=== PATIENT | male | born 1945 | race Caucasian/White ===

== ENCOUNTER → 2018-03-08 09:07 | Outpatient (CLI) | payer MEDICARE ==
[2014-02-15 13:50] VITALS: BMI 35.4
--- NOTE | ~2018-03-08 | ST ---
PATIENT:MARGIE LUCERO MEDICAL RECORD: [id number] SEX: M LOCATION:[facility] ORDER #: ADMISSION DATE: 03/08/18 AGE OF PATIENT: 72 REFERRING PHYSICIAN: INTERPRETING PHYSICIAN: COLLEEN GONSALES MD DATE OF SERVICE: 03/08/2018 PROCEDURE: Nuclear stress test. INDICATION: Angina, coronary artery disease, hypertension, and hyperlipidemia. DESCRIPTION OF PROCEDURE: He was exercised on standard Lexiscan protocol with 32.0 mCi injected at peak stress, 11.0 mCi were done previously with rest images. FINDINGS: Gated SPECT reveals a preserved ejection fraction at 62%, however, there is decreased thickening and brightening throughout the inferior segments. SPECT IMAGING: Cardiolite was used as myocardial perfusion agent. There is a mixed perfusion defect inferiorly and apically. This is partially fixed partially reversible, includes basal, mid, apical inferior segments as well as the apex itself. The remaining segments with homogeneous uptake at rest and stress. OVERALL IMPRESSION: 1. This is an abnormal nuclear stress test with mixed perfusion defect inferiorly and apically. 2. Gated SPECT reveals a preserved ejection fraction greater than 60%. In this patient with ongoing symptomatology, the current scan does suggest the presence of hemodynamically significant coronary artery disease and a previous myocardial infarction. Would proceed with coronary angiography as followup study. TRANSINT:[id number] Voice Confirmation ID: [id number] DOCUMENT ID: [id number] COLLEEN GONSALES MD at 1704 CC: ALBA CUNNINGHAM MD [id number] DICTATION DATE: 03/09/18 1218 VENEER STACKER: 03/09/18 1332 DEP CLI 03/08/18 [id number] [place] [address]
[~2018-03-08 09:07] MED LIST: ALDACTONE25 MG PO; ASPIRIN325 MG PO; CO Q-10100 MG PO; COREG25 MG PO; COZAAR100 MG PO; FIBERCON625 MG PO; FISH OIL 1,0001 CA1 PO; FLOMAX0.4 MG PO; GLUCOPHAGE1000 MG PO; HCTZ25 MG PO; HYDRALAZINE HCL50 MG PO; NIFEDIPINE ER60 MG PO; NOVOLIN N100 U/ML SQ; OCUVITE TABLET1 TA1 PO; OSTEO BI-FLEX1 EAC1 PO; PLAVIX75 MG PO; PRAVACHOL40 MG PO; PRILOSEC20 MG PO; PROBIOTIC250 MG PO; SINGULAIR10 MG PO; SYMBICORT 16010.2 GM INH; ZYRTEC10 MG PO
== END | disposition home or self-care (01) ==
LOC: D.HCCARDIO 09:07
DX: I25.119 Atherosclerotic heart disease of native coronary artery with unspecified angina pectoris (principal)

== ENCOUNTER 2018-03-16 07:58 | Outpatient (CLI) | payer MEDICARE ==
[~2018-03-16] VITALS: Ht 170.2 cm; Wt 101.8 kg
--- NOTE | ~2018-03-16 | OP ---
PATIENT NAME: MARGIE LUCERO MEDICAL RECORD: [id number] :43 LOCATION:D.CAT ADMISSION DATE: SURGEON: COLLEEN GONSALES MD DATE OF OPERATION: 03/16/2018 DATE OF SERVICE: 03/16/2018 PROCEDURES: 1. PTCA stent vein graft to RCA. 2. PTCA stent [place] circumflex. 3. Intravascular ultrasound. 4. Left heart catheterization. 5. Selective coronary angiography. 6. Vein graft angiography. 7. OTT angiography. 8. Left ventriculogram. PROCEDURE IN DETAIL: After informed consent was obtained and after detailed description of risks, benefits as well as alternative therapies, the patient elected to proceed with angiogram and angioplasty. The right femoral area was prepped and draped in normal sterile fashion. The right femoral artery was cannulated via modified Seldinger technique with placement of 6-Korean sheath. All catheters exchanged through this sheath. FINDINGS: The left ventriculogram was performed in standard 30-degree CORRIGAN view, reveals good cardiac wall motion throughout all segments. Overall ejection fraction estimated 60%. SELECTIVE CORONARY ANGIOGRAPHY: 1. Left main is with no significant angiographic disease. 2. The left anterior descending is totally occluded. 3. The circumflex has previously placed stents. Intravascular ultrasound reveals there is greater than 80% stenosis proximal to the previously placed stents. The circumflex is non-grafted. 4. The right coronary is totally occluded. 5. Vein graft to the right coronary is patent; however, there are 2 areas of greater than 80% stenosis in the mid shaft. 7. OTT to the LAD is patent. The distal LAD is mildly diffusely diseased, but patent. PTCA STENT OF THE LEFT CIRCUMFLEX: The stent used was a 3.0 x 15 mm [place]. Result was 0% residual stenosis. PTCA STENT OF THE VEIN GRAFT OF THE RIGHT CORONARY: Stents used were 3.5 x 22 mm [place] x2. The result was 0% residual stenosis. OVERALL IMPRESSION: Successful percutaneous transluminal coronary angioplasty stent of the vein graft to the right coronary artery as well as the [place]oul[place] circumflex, both going from 80% initial stenosis to 0% residual. TRANSINT:[id number] Voice Confirmation ID: [id number] DOCUMENT ID: [id number] OPERATIVE REPORT [id number] LUCERO,GARRY COLLEEN BARAJAS MD at 8673 CC: [id number] DICTATION DATE: 03/16/18 1049 CD [employer]ORAGE [employer]S MAKE UP HELPER: 03/16/18 1146 DEP CLI 03/16/18 [facility] [address] [id number]
--- NOTE | ~2018-03-16 | HEMODYNAMI ---
PATIENT:MARGIE LUCERO MEDICAL RECORD: [id number] : 43 LOCATION:[facility] ADMISSION DATE: 03/16/18 Generatedon:03/16/201810:50 Patient name: MARGIE LUCERO Patient #: [id number] SSN: D OB: 1945 Date of study: 03/16/2018 Page: Of Hemodynamic Procedure Report Patient Data Patient Demographics Procedure consent was obtained First Name: MARGIE Gender: Male Last Name: NIC : 1945 [facility] Initial: ORIN Age: 72 year(s) Patient #: [id number] Race: Unknown Additional ID: [id number] Contact details Address: [address] [place] [address] State: [place] City: [facility] [place] Zip code: [address] Past Medical History Allergies: No known allergies Admission Admission Data Admission Date: 03/16/2018 Admission Time: 7:58 Procedure Procedure Types Cath Procedure Diagnostic Procedure LHC LHC w/Coronaries w/Grafts FFR/IVUS Intra-Coronary IVUS Initial Sedation Charges Moderate Sedation up to 15 minutes PCI Procedure Coronary Stent Coronary Stent Initial x2 Procedure Description Procedure Date Procedure Date: 03/16/2018 Procedure Start Time: 10:15 Procedure End Time: 10:48 Procedure Staff Name Function Martell Maher MD Performing Physician Emanuel Neville RN Nurse Lacey Echeverria RT Monitor Tiara Lopez RT Scrub Procedure Data Cath Procedure Fluoroscopy Diagnostic fluoroscopy Total fluoroscopy Time: 6.7 time: 6.7 min min Diagnostic fluoroscopy Total fluoroscopy dose: dose: 1378 mGy 1378 mGy Contrast Material Contrast Material Type Amount (ml) Isovue 300 139 Entry Location Entry Primary Successful Side Size Upsize Upsize Entry Closure Succes sful Closure Location (Fr) 1 (Fr) 2 (Fr) Remarks Device Remarks Femoral Right 5 Fr 6 Fr Exoseal artery Short Estimated blood loss: 10 ml Diagnostic catheters Device Type Used For End Catheter Placement MULTIPACK Pigtail 5 Fr Procedure catheter MULTIPACK JL 4.0 5Fr Procedure catheter MULTIPACK 3DRC 5Fr Procedure catheter DIAGNOSTIC AR2 MOD 5 Fr Procedure catheter ([id number]) Procedure Complications No complications Procedure Medications Medication Administration Route Dosage 0.9% NaCl I.V. 100 ml/hr Oxygen etCO2 Nasal cannula 2 l/min Heparin Flush Bag added to field 2 bags (1000units/500ml NS) Lidocaine 2% added to field 20 Versed I.V. 2 mg Fentanyl I.V. 100 mcg Heparin Bolus I.V. 4000 units Integrilin (Bolus I.V. 9 ml 2mg/ml) Integrilin (Bolus wasted 1 ml 2mg/ml) Plavix P.O. Hemodynamics Rest Heart Rate: 61 (bpm) Snapshots Pre Cath Intra NCS Post Cath Vital Signs Time Heart Resp SPO2 etCO2 NIBP (mmHg) Rhythm Pain Sedation Rate (ipm) (%) (mmHg) Status Level (bpm) 9:29:19 60 20 98 34.5 153/63(127) NSR 0 (11) 10(A) , No pain 9:33:41 58 12 96 31.5 137/60(107) NSR 0 (11) 10(A) , No pain 9:38:01 58 12 98 39 129/60(104) NSR 0 (11) 10(A) , No pain 9:42:17 60 12 98 39.8 131/63(95) NSR 0 (11) 10(A) , No pain 9:46:35 58 12 98 15.7 132/60(95) NSR 0 (11) 10(A) , No pain 9:50:55 58 12 98 38.3 121/58(98) NSR 0 (11) 10(A) , No pain 9:55:09 57 13 98 36 135/59(107) NSR 0 (11) 10(A) , No pain 9:59:29 56 14 98 36 131/60(106) NSR 0 (11) 10(A) , No pain 10:03:50 55 14 98 24.7 124/56(104) NSR 0 (11) 10(A) , No pain 10:08:01 56 12 93 40.5 119/55(97) NSR 0 (11) 9(A) , No pain 10:12:18 62 14 96 35.3 117/51(97) NSR 0 (11) 9(A) , No pain 10:16:31 58 12 98 35.3 126/59(92) NSR 0 (11) 9(A) , No pain 10:20:47 57 12 95 36 122/60(102) NSR 0 (11) 9(A) , No pain 10:25:03 58 12 94 37.5 120/56(100) NSR 0 (11) 9(A) , No pain 10:30:04 57 13 97 37.5 129/61(97) NSR 0 (11) 9(A) , No pain 10:35:05 58 13 97 35.3 127/56(99) NSR 0 (11) 9(A) , No pain 10:39:21 58 14 97 38.3 136/63(110) NSR 0 (11) 9(A) , No pain 10:43:42 58 17 97 34.5 147/60(111) NSR 0 (11) 10(A) , No pain 10:48:06 56 13 98 37.5 134/58(109) NSR 0 (11) 10(A) , No pain Medications Time Medication Route Dose Verified Delivered Reason Notes Effectiveness by by 9:29:46 0.9% NaCl I.V. 100 Emanuel Emanuel Per physician ml/hr Jamin Neville RN RN 9:29:56 Oxygen etCO2 2 Emanuel Emanuel Per physician Nasal l/min Jamin Neville cannula RN RN 9:30:21 Heparin Flush added 2 Emanuel Emanuel used for Bag to bags Jamin Neville procedure (1000units/500ml RN RN NS) 9:30:38 Lidocaine 2% added 20ml Emanuel Emanuel for local to vial Jamin Neville anesthetic RN RN 10:13:33 Versed I.V. 2 mg Emanuel Emanuel for sedation Jamin Neville RN RN 10:13:42 Fentanyl I.V. 100 Emanuel Emanuel for sedation mcg Jamin Neville RN RN 10:32:59 Heparin Bolus I.V. 4000 Emanuel Emanuel for units Jamin Neville anticoagulation RN RN 10:33:13 Integrilin I.V. 9 ml Emanuel Emanuel for (Bolus 2mg/ml) Jamin Neville antiplatelet RN RN therapy 10:33:22 Integrilin wasted 1 ml Emanuel Emanuel to sharp's (Bolus 2mg/ml) Lorigan Lorigan RN RN 10:46:30 Plavix P.O. Emanuel Castellanos for Jamin Neville antiplatelet RN RN therapy Procedure Log Time Note 9:18:39 Emanuel Neville RN sent for patient. Start room use. 9:18:40 Time tracking: Regular hours (M-F 7:00 - 5:00) 9:18:44 Plan of Care:Hemodynamics will remain stable., Cardiac rhythm will remain stable., Comfort level will be maintained., Respiratory function will remain adequate., Patient/ family verbilizes understanding of procedure., Procedure tolerated without complication., Recovers from procedure without complications.. 9:21:18 Patient received from Pre/Post Procedure Room to CCL 2 Alert and oriented. Tansferred to table in Supine position. 9:21:19 Warm blankets applied, and irene hugger turned on for patient comfort. 9:21:20 Correct patient and procedure confirmed by team. 9:21:21 Signed procedure consent form obtained from patient. 9:21:22 ECG and BP/O2 sat monitors applied to patient. 9:21:23 Full Disclosure recording started 9:28:03 Vital chart was started 9:28:09 Rhythm: sinus bradycardia 9:28:21 H&P Date Dictated: 02/14/2018 Within 30 days and on chart., H&P Addendum completed by physician on day of procedure. (MUST COMPLETE FOR ALL OUTPATIENTS). 9:28:22 Pre-procedure instructions explained to patient. 9:28:23 Pre-op teaching completed and patient verbalized understanding. 9:28:25 Family in patients room. 9:28:27 Patient NPO since Midnight. 9:28:38 Patient allergic to No known allergies 9:28:40 Is the patient allergic to Iodine/contrast media? No. 9:28:42 Is patient on blood thinner?No 9:28:44 Patient diabetic? Yes. 9:28:45 If diabetic: On Metformin? Yes 9:28:47 If on Metformin: Last Dose? 03/14/2018 9:28:57 Previous problem with sedation/anesthesia? No ? 9:28:59 Snore? Yes 9:28:59 Sleep apnea? Yes 9:29:01 Deviated septum? No 9:29:02 Opens mouth fully? Yes 9:29:03 Sticks out tongue? Yes 9:29:07 Airway obstruction? Yes COPD 9:29:12 Dentures? Yes In 9:29:15 Pre procedure: right dorsailis pedis pulse 2+ Normal; easily identifiable; not easily obliterated 9:29:18 Patient pain scale 0/10 ?. 9:29:24 IV patent on arrival in left forearm with 0.9% NaCl at [facility]. 9:29:26 Lab results completed and on chart. 9::31 Right groin area was prepped with chlora-prep and draped in sterile fashion 9::31 Alarms reviewed by R. N. 9::32 Sharps counted by scrub and verified by R.N. 9:29:46 0.9% NaCl 100 ml/hr I.V. was administered by Emanuel Neville RN; Per physician; 9:29:56 Oxygen 2 l/min etCO2 Nasal cannula was administered by Emanuel Neville RN; Per physician; 9:30:02 Use device set Femoral Dx 9:30:04 ACIST Syringe (85643) opened to sterile field. 9:30:05 Bag Decanter (2002S) opened to sterile field. 9:30:05 Medline Cath Pack ([id number]) opened to sterile field. 9:30:06 DIAGNOSTIC WIRE .035 260cm J wire (733312) opened to sterile field. 9:30:07 ACIST Hand Control (68198) opened to sterile field. 9:30:07 ACIST Manifold (87194) opened to sterile field. 9:30:08 DIAGNOSTIC Multipack 5Fr catheter set (IA7563) opened to sterile field. 9:30:09 Tegaderm 4 x 4 (1626W) opened to sterile field. 9:30:10 SHEATH 5FR Poteet (PSZ289) opened to sterile field. 9:30:21 Heparin Flush Bag (1000units/500ml NS) 2 bags added to field was administered by Emanuel Neville RN; used for procedure; 9:30:38 Lidocaine 2% 20ml vial added to field was administered by Emanuel Neville RN; for local anesthetic; 9:31:25 Baseline sample Acquired. 9:34:25 Elke Hall RT(R) was relieved by Lacey Echeverria RT(R) as monitoring person 10:11:00 Physician arrived 10:11:01 --------ALL STOP TIME OUT------ 10:11:01 Final Timeout: patient, procedure, and site verified with staff and physician. All members of the team are in agreement. 10:11:04 Right groin site verified by team. 10:11:07 Physical assessment completed. ASA score P 2 - A patient with mild systemic disease as per Martell Maher MD. 10:11:12 Sedation plan: IV Moderate Sedation Medication:Versed, Fentanyl 10:13:33 Versed 2 mg I.V. was administered by Emanuel Neville RN; for sedation; 10:13:42 Fentanyl 100 mcg I.V. was administered by Emanuel Neville RN; for sedation; 10:15:23 Procedure started. 10:15:34 Local anesthetic to right femoral artery with Lidocaine 2% by Martell Maher MD.INITIAL ACCESS ONLY 10:15:46 A 5 Fr sheath was inserted into the Right Femoral artery 10:16:08 A MULTIPACK Pigtail 5 Fr catheter was advanced over the wire and used for Procedure. 10:16:11 LV angiography performed. 10:16:27 EF : 60 % 10:16:28 Catheter removed. 10:16:40 A MULTIPACK JL 4.0 5Fr catheter was advanced over the wire and used for Procedure. 10:17:09 LCA angiography performed. 10:20:51 [place] Torres Martinez Eagleye IVUS Catheter (44106X) opened to sterile field. 10:20:51 INFLATOR Merit BasixCompak (MX0986) opened to sterile field. 10:20:52 SHEATH 6FR Poteet (BGB324) opened to sterile field. 10:20:53 CHOICE PT Extra Support 182cm wire ([id number]) opened to sterile field. 10:28:23 Sheath upsized to a 6 Fr Short. 10:28:58 A MULTIPACK 3DRC 5Fr catheter was advanced over the wire and used for Procedure. 10:29:22 RCA angiography performed. 10:29:24 OTT angiography performed. 10:29:29 OTT to LAD angiography performed. 10:29:31 Catheter removed. 10:30:28 A DIAGNOSTIC AR2 MOD 5 Fr catheter ([id number]) was advanced over the wire and used for Procedure. 10:30:37 SVG to RCA angiography performed. 10:30:41 Catheter removed. 10:31:28 GUIDE 6FR MB 1 catheter (LA6MB1) opened to sterile field. 10:31:39 Proceeding to intervention. 10:32:06 6 Fr MB1 guide catheter was inserted over the wire 10:32:59 Heparin Bolus 4000 units I.V. was administered by Emanuel Neville RN; for anticoagulation; 10:33:13 Integrilin (Bolus 2mg/ml) 9 ml I.V. was administered by Emanuel Neville RN; for antiplatelet therapy; 10:33:22 Integrilin (Bolus 2mg/ml) 1 ml wasted was administered by Emanuel Neville RN; to sharp's; 10:33:51 choice pt ex wire advanced. 10:36:06 Place stent Inflation Number: 1 A NICCI RX 3.5 x 22 stent ([id number]) was prepped and advanced across the Aorta Right -> Mid RCA. The stent was deployed at 17 MONISHA for 0:13 (min:sec). 10:39:07 Place stent Inflation Number: 2 A NICCI RX 3.5 x 22 stent ([id number]) was prepped and advanced across the Aorta Right -> Mid RCA. The stent was deployed at 21 MONISHA for 0:06 (min:sec). 10:39:19 Stent catheter was removed intact over wire. 10:39:21 Wire removed. 10:39:22 Guide catheter removed. 10:39:38 GUIDE 6FR XBLAD 4.0 catheter ([id number]) opened to sterile field. 10:39:48 IVUS catheter advanced over wire. 10:40:03 IVUS pass to Circ lesion performed. 10:41:54 IVUS catheter removed over wire. 10:42:59 Place stent Inflation Number: 1 A NICCI RX 3.0 x 15 stent ([id number]) was prepped and advanced across the Dist CX. The stent was deployed at 15 MONISHA for 0:15 (min:sec). 10:43:20 Stent catheter was removed intact over wire. 10:44:48 Wire removed. 10:44:50 Guide catheter removed. 10:45:02 Sheath removed intact; hemostasis achieved with Exoseal to the Right Femoral artery. 10:45:07 Procedure ended.(Physican Out) 10:45:35 Fluoroscopy time 06.70 minutes. 10:45:40 Flurop Dose total: 1378 10:45:40 Fluoroscopy dose: 1378 mGy 10:45:46 Contrast amount:Isovue 300 139ml. 10:45:52 Sharps counted by scrub and verified by R.N. 10:45:54 Insertion/operative site no bleeding no hematoma. 10:45:58 Post-op/insertion site Right Femoral artery dressed using a 4 x 4 and Tegaderm. 10:46:02 Post right femoral artery:stable 10:46:06 Post Procedure Pulses reassessed and unchanged 10:46:10 Post-procedure physical assessment completed. ASA score P 2 - A patient with mild systemic disease as per Martell Maher MD. 10:46:14 Post procedure rhythm: sinus rhythm 10:46:19 Estimated blood loss: 10 ml 10:46:24 Post procedure instruction explained to patient.Patient verbalizes understanding. 10:46:30 Plavix P.O. was administered by Emanuel Neville RN; for antiplatelet therapy; 10:46:58 Procedure type changed to Cath procedure, Diagnostic procedure, LHC, LHC w/Coronaries w/Grafts, FFR/IVUS, Intra-Coronary IVUS Initial, Sedation Charges, Moderate Sedation up to 15 minutes, PCI procedure, Coronary Stent, Coronary Stent Initial x2 10:47:00 Procedure and supply charges have been captured, reviewed, submitted and are correct. 10:47:50 Procedure Complication : No complications 10:47:53 Vital chart was stopped 10:47:58 See physician's report for complete and final results. 10:48:01 Report given to Pre/Post Procedure Room. 10:48:04 Patient transfered to Pre/Post Procedure Room with Stretcher. 10:48:06 Procedure ended. 10:48:06 Full Disclosure recording stopped 10:48:10 End room use (Document Last) 10:50:09 ACC-PCI Only Patient was given prescriptions, or instructed by Martell Maher MD to start/continue the following medications upon discharge: Plavix Intervention Summary Intervention Notes Time ActionType Lesion and Equipment Used Action# Pressure Duration Attributes 10:36:06 Place stent Aorta Right NICCI RX 3.5 x 1 17 00:13 -> Mid RCA 22 stent ([id number]) 10:39:07 Place stent Aorta Right NICCI RX 3.5 x 2 21 00:06 -> Mid RCA 22 stent ([id number]) 10:42:59 Place stent Dist CX NICCI RX 3.0 x 1 15 00:15 15 stent ([id number]) Device Usage Item Name Manufacture Quantity Catalog Number Hospital Part Current M inimal Lot# / Charge Number Stock Stock Serial# Code ACIST Syringe Acist 1 81427 858408 264936 290528 2 0 (62691) Medical Systems Inc Bag Decanter Microtek 1 847838 81878 051346 5 () Medical Inc. Medline Cath Medline 1 [id number] 713813 29430 745650 5 Pack ([id number]) DIAGNOSTIC St Iron 1 116656 390364 300501 228494 3 0 WIRE .035 260cm J wire (052312) ACIST Hand Acist 1 91381 814593 260017 080596 5 Control Medical (12733) Systems Inc ACIST Manifold Acist 1 45922 436368 128733 838656 5 (27590) Medical Systems Inc DIAGNOSTIC Cardinal 1 [id number] 813150 60687 565542 3 0 Multipack 5Fr Health catheter set (SL6251) Tegaderm 4 x 4 3M 1 1626W 556455 274299 597461 5 (1626W) SHEATH 5FR Terumo 1 LFJ162 995751 998428 297219 4 0 Poteet (HSI083) MULTIPACK Cardinal 1 690569 5 Pigtail 5 Fr Health catheter MULTIPACK JL Cardinal 1 688495 5 4.0 5Fr Health catheter [place] 1 50823T 187566 447144 180089 8 Torres Martinez Eagleye IVUS Catheter (28536C) INFLATOR Merit Merit 1 [id number] 913376 230576 828198 1 5 MRO Medical ([id number]) SHEATH 6FR Terumo 1 TNU109 528025 123197 966642 4 0 Poteet (UPH821) CHOICE PT [place] 1 [id number] 339900 946121 976860 5 Extra Support Scientific 182cm wire ([id number]) MULTIPACK 3DRC Cardinal 1 976373 5 5Fr catheter Health DIAGNOSTIC AR2 Cardinal 1 [id number] 600138 350272 439988 2 0 MOD 5 Fr Health catheter (408010T) GUIDE 6FR MB 1 Medtronic 1 LA6MB1 164744 99977 580164 1 catheter (LA6MB1) NICCI RX 3.5 x Medtronic 2 [id number] 182804 7446991 276155 5 [id number] 22 stent [id number] ([id number]) GUIDE 6FR Cardinal 1 [id number] 614774 698456 263734 3 XBLAD 4.0 Health catheter (23852685) NICCI RX 3.0 x Medtronic 1 [id number] 624392 4455280 699165 5 [id number] 15 stent ([id number]) Signature Audit [place] Stage Time Signature Unsigned Intra-Procedure 03/16/2018 Lacey Echeverria 10:50:26 AM RT(R) Signatures Monitor : Lacey Echeverria Signature : RT Date : Time : [id number] [place] [address]
[~2018-03-16 07:58] MED LIST changes: -ALDACTONE25 MG PO; -FLOMAX0.4 MG PO; -HYDRALAZINE HCL50 MG PO; -PROBIOTIC250 MG PO; -SINGULAIR10 MG PO
[2018-03-16] MEDS ORDERED: HYDRALAZINE HCL50 MG PO (08:24)
[2018-03-16] MEDS ORDERED: ALDACTONE25 MG PO (08:24)
[2018-03-16] MEDS ORDERED: SINGULAIR10 MG PO (08:25)
[2018-03-16] MEDS ORDERED: FLOMAX0.4 MG PO (08:26)
[2018-03-16] MEDS ORDERED: PROBIOTIC250 MG PO (08:29)
[2018-03-16 08:37] VITALS: BP 152/46; Ht 170.2 cm; Wt 101.8 kg
[2018-03-16 08:59] LABS: ANION GAP 14.8 mmol/L (8-16); CALCIUM 9.2 mg/dL (8.5-10.1); CARBON DIOXIDE 24.4 mmol/L (21.0-32.0); CREATININE - SERUM 1.1 mg/dL (0.6-1.3); POTASSIUM - SERUM 4.2 mmol/L (3.5-5.1)
[2018-03-16 09:33] LABS: BASOPHILS 0.1 % (0-2); EOSINOPHILS 2.5 % (0-7); HEMATOCRIT 36.4 % (42.0-54.0); HEMOGLOBIN 12.8 g/dL (13.5-17.5); LYMPHOCYTES 25.3 % (15-50); MCH 31.3 pg (26.0-34.0); MCHC 35.2 g/dL (31.0-37.0); MEAN PLATELET VOLUME 9.9 fL (7.4-10.4); MONOCYTES 7.7 % (2-11); NEUTROPHILS 63.4 % (40-80); PLATELET COUNT 136 10x3/uL (130-400); RBC 4.09 10x6/uL (4.20-6.10); RDW 14.4 % (11.5-14.5); WBC 7.3 10x3/uL (4.8-10.8)
[2018-03-16] MEDS ORDERED: PLAVIX75 MG PO (11:10)
== END 2018-03-16 14:40 ==
LOC: D.CATH 07:58
PROVIDERS: Internal Medicine Interventional Cardiology
DX: I25.119 Atherosclerotic heart disease of native coronary artery with unspecified angina pectoris (principal); I25.719 Atherosclerosis of autologous vein coronary artery bypass graft(s) with unspecified angina pectoris; I25.82 Chronic total occlusion of coronary artery; Z95.5 Presence of coronary angioplasty implant and graft; Z01.812 Encounter for preprocedural laboratory examination
CPT/HCPCS: 92978; 93459; C9604; C9600

== ENCOUNTER 2018-09-22 06:35 | Day surgery (SDC) | payer MEDICARE ==
[2018-09-20 09:29] LABS: HEMATOCRIT 36.4 % (42.0-54.0); HEMOGLOBIN 12.7 g/dL (13.5-17.5); MCH 30.7 pg (26.0-34.0); MCHC 34.9 g/dL (31.0-37.0); MCV 87.9 fL (80.0-100.0); RBC 4.14 10x6/uL (4.20-6.10); RDW 15.2 % (11.5-14.5); WBC 6.9 10x3/uL (4.8-10.8)
[2018-09-20 09:47] LABS: ANION GAP 14.9 mmol/L (8-16); CALCIUM 8.8 mg/dL (8.5-10.1); CARBON DIOXIDE 24.2 mmol/L (21.0-32.0); CREATININE - SERUM 1.2 mg/dL (0.6-1.3); POTASSIUM - SERUM 4.1 mmol/L (3.5-5.1)
[~2018-09-22 06:35] MED LIST changes: +ALDACTONE25 MG PO; +CITRACAL + D E1 EACH PO; +FLOMAX0.4 MG PO; +HYDRALAZINE HCL50 MG PO; +NOVOLIN 70/30 110 ML SC; +OMEPRAZOLE20 M1 PO; -PRILOSEC20 MG PO; +PROBIOTIC250 MG PO; +SINGULAIR10 MG PO
[2018-09-22 08:47] VITALS: BP 138/60; BMI 33.6
--- NOTE | 2018-09-22 11:14 | NUR ---
1035 PATIENT NOTED TO HAVING SMALL RED AREA UNDER RIGHT EYE, PATIENT STATED "I FELL GOING TO GET THE MAIL", MITCH.
--- NOTE | 2018-09-22 11:15 | NUR ---
REC'D FROM SURGERY. FAMILY AT BEDSIDE.FL TRAY AND DIET COLA BROUGHT TO PATIENT.
--- NOTE | 2018-09-22 11:45 | NUR ---
TOLERATED DIET. AMBULATED TO BATHROOM. VOIDED WITHOUT DIFFICULTY. IV DC'D WITH CATHETER INTACT.
--- NOTE | 2018-09-22 11:55 | NUR ---
WRITTEN AND VERBAL DC INST. GIVEN TO PT ALONG WITH RX. VERBALIZED UNDEERSTANDING.
--- NOTE | 2018-09-22 12:05 | NUR ---
DC'D HOME WITH FAMILY VIA PRIVATE VEHICLE. STABLE AT TIME OF DC.
--- NOTE | 2018-09-22 15:34 | OP ---
PATIENT NAME: MARGIE LUCERO MEDICAL RECORD: [id number] :41 [facility] DATE: SURGEON: ISRRAEL BROOKS MD DATE OF OPERATION: 09/22/2018 SURGEON: Isrrael Brooks MD DIAGNOSES: Urinary retention, obstructive prostate, recurrent urinary tract infections, bladder stones, elevated PSA of 6.9. PROCEDURE: Cystoscopy, transrectal ultrasound and prostate biopsy. FINDINGS: Obstructive lateral lobes and a large median lobe of the prostate. The bladder is filled with large stones. Transrectal ultrasound shows a 70-gram prostate. SPECIMENS: Prostate biopsy cores. BLOOD LOSS: None. 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 He has urinary retention in the past and last year, he had a urinary tract infection with Staphylococcus epidermidis, which was treated with Bactrim. He still remains on antibiotics. His PSA was high at 6.9. He has quite significant voiding symptoms including urinary frequency 6 times a day and nocturia times zero to one. He was on Plavix after having 3 coronary artery stents placed by Dr. Maher in February of 2018. We had to wait until the Plavix could finally be discontinued in order to biopsy his prostate. The Plavix was discontinued at the end of August 2018. He comes today to have cystoscopy and a prostate biopsy. He is not allergic to any antibiotics. He was given Ancef consumer banker to the OR. DESCRIPTION OF PROCEDURE: The patient was given IV sedation. He was then placed into the lithotomy position and prepped and draped. Cystoscopy was performed using a 21-Georgian cystoscope with 30-degree lens. The penile urethra shows no strictures or obstruction. There is trilobar hyperplasia of the prostate. The lateral lobes meet in the midline. There is a very large median lobe, which is more fused to the right side and there was a sulcus on the left side. Going into the bladder, the bladder was filled with very large stones in the bladder, which resemble reptile eggs. The bladder was then emptied through the cystoscope sheath and the scope was removed. We then placed a transrectal ultrasound probe in. Prostate size measurements were obtained and a size of 70 grams was calculated. Sextant biopsies were obtained with at least 3 cores from each sextant. Once all the specimens were obtained, the procedure was terminated. The patient will require an open bladder stone removal. Depending on whether his biopsy shows a benign prostate or cancerous prostate, we will have to proceed to treat the prostate. If the prostate biopsy is benign, then he may require transurethral resection of the prostate due to the large median lobe size. TRANSINT:[id number] Voice Confirmation ID: [id number] DOCUMENT ID: [id number] OPERATIVE REPORT [id number] MARGIE LUCERO, ISRRAEL Galvez MD at 1534 CC: [id number] DICTATION DATE: 09/22/18 1112 BENCH WORKER BINDING: 09/22/[address] [facility] 09/22/18 [id number] [place] [address]
== END 2018-09-22 12:05 | disposition home or self-care (01) ==
LOC: D.OPS 06:35 → D.PAN 08:30 → D.OPS 08:30
PROVIDERS: Anesthesiology; ATTEND Urology
DX: C61 Malignant neoplasm of prostate (principal); N40.1 Benign prostatic hyperplasia with lower urinary tract symptoms; R33.8 Other retention of urine; N13.8 Other obstructive and reflux uropathy; N21.0 Calculus in bladder; Z01.812 Encounter for preprocedural laboratory examination

== ENCOUNTER → 2018-10-28 10:08 | Outpatient (CLI) | payer MEDICARE ==
--- NOTE | ~2018-10-28 | ST ---
PATIENT:MARGIE LUCERO MEDICAL RECORD: [id number] SEX: M LOCATION:[facility] ORDER #: ADMISSION DATE: 10/28/18 AGE OF PATIENT: 72 REFERRING PHYSICIAN: INTERPRETING PHYSICIAN: COLLEEN GONSALES MD DATE OF SERVICE: 10/28/2018 Nuclear Stress Test INDICATIONS: Angina and coronary artery disease, shortness of breath, hypertension, and hyperlipidemia. PROCEDURE IN DETAIL: He was exercised on standard Lexiscan protocol with 30 mCi of sestamibi injected at peak stress and 10 mCi used previously for rest images. FINDINGS: Gated SPECT reveals a preserved ejection fraction at 75%. There is decreased thickening and brightening throughout the inferior segments. SPECT Imaging: Cardiolite was used as myocardial perfusion agent. There is a fixed perfusion defect inferiorly and apically. This includes the basal, mid apical, and inferior segments as well as the apex itself. There is no evidence of reversibility, in fact there is improvement with stress showing reverse redistribution. The remaining segments are with homogeneous uptake at rest and stress. OVERALL IMPRESSION: This is a normal nuclear stress test. This is a mildly abnormal nuclear stress test only showing a fixed perfusion defect inferoapically. This defect is not reversible, in fact it improves with stress and the remaining segments are with homogeneous uptake at rest and stress. Hence, this is a stable nuclear stress test. Continue medical management of the coronary artery disease and cardiac risk factors. TRANSINT:[id number] Voice Confirmation ID: [id number] DOCUMENT ID: [id number] COLLEEN GONSALES MD CC: [id number] DICTATION DATE: 10/31/18 1032 EMISSIONS TESTING AND REPAIR TECHNICIAN: 10/31/18 2312 DEP CLI 10/28/18 [place] [id number] [place] [id number]
[~2018-10-28 10:08] MED LIST changes: -OMEPRAZOLE20 M1 PO; +PRILOSEC20 MG PO
== END | disposition home or self-care (01) ==
LOC: D.HCCARDIO 10:08
PROVIDERS: ATTEND Internal Medicine Interventional Cardiology
DX: I25.10 Atherosclerotic heart disease of native coronary artery without angina pectoris (principal)

== ENCOUNTER 2018-11-03 10:43 | Inpatient (IN) | payer MEDICARE ==
[~2018-11-03] VITALS: Ht 170.2 cm; Wt 100.2 kg
[~2018-11-03 10:43] MED LIST changes: +OMEPRAZOLE20 M1 PO; -PRILOSEC20 MG PO
[2018-11-07 12:02] LABS: BASOPHILS 0.2 % (0-2); EOSINOPHILS 4.7 % (0-7); HEMATOCRIT 33.4 % (42.0-54.0); HEMOGLOBIN 11.6 g/dL (13.5-17.5); IMMATURE GRANULOCYTES 0.8 % (0-5); LYMPHOCYTES 16.9 % (15-50); MCH 31.2 pg (26.0-34.0); MCHC 34.7 g/dL (31.0-37.0); MCV 89.8 fL (80.0-100.0); MEAN PLATELET VOLUME 9.1 fL (7.4-10.4); NEUTROPHILS 69.4 % (40-80); PLATELET COUNT 108 10x3/uL (130-400); RBC 3.72 10x6/uL (4.20-6.10); RDW 15.1 % (11.5-14.5); WBC 6.6 10x3/uL (4.8-10.8)
[2018-11-07 12:09] LABS: ANION GAP 15.3 mmol/L (8-16); CALCIUM 8.9 mg/dL (8.5-10.1); CREATININE - SERUM 1.2 mg/dL (0.6-1.3); POTASSIUM - SERUM 4.3 mmol/L (3.5-5.1)
[2018-11-07 12:19] LABS: INR 1.02 (0.85-1.17); PROTIME 12.9 SECONDS (11.6-15.0)
[2018-11-07 12:20] LABS: APTT 33.4 SECONDS (22.8-39.4)
[2018-11-07] MEDS ORDERED: MELATONIN 3 MG1 TAB PO (12:21)
[2018-11-08 12:38] VITALS: BP 144/34; BMI 34.7
[2018-11-08 18:21] VITALS: BP 139/71
--- NOTE | 2018-11-08 20:00 | NUR ---
ASSESSMENT PER ADMIT PACKET. ABD. INCISION FROM NAVEL TO PELVIC AREA DRSG INTACT WITH SMALL AMOUNT OF BLEEDING. RT LOWER ABDOMEN WITH CATRACHITA DRAIN IN PLACED AND COMPRESSED. BLOODY DRAINAGE NOTED. IV PATENT LEFT HAND SALINE LOCKED. O2 ON 3L/M PER NC. NO DISTRESS. HOB UP 30 DEGREES.
[2018-11-08 20:19] VITALS: BP 117/60
--- NOTE | 2018-11-08 21:45 | NUR ---
MEDS GIVEN PER JUN RCCU=139. NPH 45 UNITS GIVEN PER JUN. HS SNACK GIVEN TO PATIENT REQUESTED JELLO. A SNACK. WILL CONTINUE TO OBSERVE. DENIES PAIN AT THIS TIME.
--- NOTE | 2018-11-08 21:46 | OP ---
PATIENT NAME: MARGIE LUCERO MEDICAL RECORD: [id number] :41 LOCATION:[facility] ADMISSION DATE:11/08/18 SURGEON: ISRRAEL BROOKS MD DATE OF OPERATION: 11/08/2018 CO-SURGEONS: Isrrael Brooks MD and Isrrael Parra MD DIAGNOSES: Prostate cancer, urinary retention, and bladder stones. PROCEDURE: UroLift times 8 units deployed and 7 held, this was by Dr. Brooks and as co-surgeons by Dr. Brooks and Dr. Isrrael Parra open bladder stone removal (cystolitholapaxy). FINDINGS: On cystoscopy, bladder filled with large stones. Bilateral lateral lobe obstruction with a prominent median lobe. Inguinal hernia repair mesh in the left lower quadrant. ESTIMATED BLOOD LOSS: Minimal. CLINICAL HISTORY: This is a 72-year-old male who was found to have an elevated PSA. He is in urinary retention and he has an indwelling Max catheter. He underwent a prostate biopsy and at the same time, he had a cystoscopy. The prostate biopsy showed prostate cancer, but of low-grade cancer for which he is being observed. The cystoscopy showed an obstructive prostate with a fairly large median lobe and large numbers of bladder stones. He comes today to have the UroLift procedure done and to have the bladder stones removed by open surgery. DESCRIPTION OF PROCEDURE: The patient was given induction of general anesthesia in supine position. He was then placed into stirrups. We prepped and draped the abdomen as well as the perineum and genitals. The UroLift scope was introduced. Findings are as outlined above. The first 2 units that were placed were at the level of the bladder neck. This was 1.5 cm distal to the bladder neck down to the lateral sulcus. One unit was placed on each side. Then, at the verumontanum level another 2 units were placed, one on each side. This was out at the anterolateral sulcus level. Upon visualizing the prostatic urethra, it was evident that the mid urethra was still obstructive. Then, at the mid urethral level at the midpoint of the distance between the anterior and posterior prostatic urethral surface we placed 1 unit UroLift unit on each side. This gave 6 units to open up the anterior urethral channel. The median lobe was still an issue. I attempted to fix it from the right side to pin it to the left lateral lobe. The first attempt to do this resulted in a misfire of implanting device. This had to be discarded. A second attempt was successful. Thus, he has [address] and 8 of them had been fired. We then inserted a Max catheter to bag drainage. An 8 cm infraumbilical midline incision was marked out using a marking pen extending cranially from the symphysis pubis. The #10 blade was used to cut down through the skin incision and to go down to the rectus fascia in the midline we used the Bovie. I placed stay sutures of 2-0 silk where I assumed the anterior bladder wall would be. When I opened up the most cranial part of it, it was evident that I was in the peritoneal cavity and at the level of the dome of the bladder. Also, while I was manual dissecting the space of Retzius, I identified the inguinal hernia repair mesh. This was adherent to the bladder. It is also adherent to the external iliac artery and vein. At this point, I called Dr. Parra in order to determine what to do about the inguinal hernia mesh. Dr. Parra determined OPERATIVE REPORT [id number] MARGIE LUCERO that since it had been there for a number of years, there was no harm in possibly exposing it to infected urine. The mesh has a tail, which extends into the perivesical fat. We dissected this tail out so that the bladder will be fully mobile. We put 2 more stay sutures more distally so that we would be opening up the anterior wall of the bladder. A cystotomy was made about 2 cm in length along the anterior wall of the bladder in the midline. We could immediately identify large numbers of stones. Initially, we used ring forceps to pull out the larger stones and finally we resorted to just scooping them out with our fingers. The Max catheter was in the way, so the Max catheter was removed. Finally, we had removed all of the stone material. The bladder was irrigated out and no further stone debris was seen. Some stone debris that had entered the space of Retzius was carefully picked away with forceps and removed. At this point, we closed the cystotomy. This was a 2-layer closure with 2-0 Vicryl. The first layer took the entire bladder wall and mucosa. This was with a running suture. The second layer was a reinforcement layer, which is seromuscular and this was also running with 2-0 Vicryl. We then made sure that a new 2-way 20-Maori Max catheter was placed into the bladder and we could palpate the Max catheter and the balloon in the bladder. This was put to bag drainage. A #10 flat Harmeet-Russ drain was put to exit through the right lower quadrant of the abdomen. The drain stitch was a 2-0 nylon. The rectus fascia was reapproximated using looped 0 PDS. [place] were used to close the skin and dressings were applied. The patient will be admitted to the hospital for pain control postoperatively. TRANSINT:[id number] Voice Confirmation ID: [id number] DOCUMENT ID: [id number] ISRRAEL BROOKS MD at 2146 CC: [id number] DICTATION DATE: 11/08/181717 TERMITE TECHNICIAN: 11/08/182144 ADM IN [facility] [address] [place] [address]
[2018-11-08 22:19] VITALS: BP 128/64; BMI 34.7
--- NOTE | 2018-11-08 23:00 | NUR ---
PT'S CPAP SET UP AND IN PLACE. RESTING QUIETLY DENIES NEEDS.
[2018-11-09 00:58] VITALS: BP 124/58
--- NOTE | 2018-11-09 03:00 | NUR ---
EYES CLOSED RESPIRATIONS WITH EASE AND UNLABORED. DENIES PAIN OR DISCOMFORT.
--- NOTE | 2018-11-09 04:29 | NUR ---
NO CHANGES IN ASSESSMENT.
[2018-11-09 04:54] VITALS: BP 137/50
[2018-11-09 08:58] VITALS: BP 141/60
--- NOTE | 2018-11-09 11:04 | NUR ---
scd's on and actively working
[2018-11-09 12:49] VITALS: BP 136/60
[2018-11-09 13:38] VITALS: Ht 170.2 cm; Wt 100.2 kg
[2018-11-09 15:58] VITALS: BP 143/65
--- NOTE | 2018-11-09 20:00 | NUR ---
ASSESSMENT PER FLOWSHEET. IV SALINE LOCKED TO LEFT HAND PT WEARING CPAP. SR UP X2 CALL LIGHT WITHIN REACH. ABDOMINAL INCISION C/D/I WITH CATRACHITA DRAIN RT LOWER QUAD IN PLACE AND COMPRESSED.
[2018-11-09 20:49] VITALS: BP 135/46
--- NOTE | 2018-11-09 21:45 | NUR ---
MEDS GIVEN PER JUN. FMYB=179. HELD NPH INSULIN.
--- NOTE | 2018-11-09 22:10 | NUR ---
REQUESTING PAIN MED FOR INCISIONAL PAIN RAES PAIN #4. NORCO 7.5MG TAB ONE PO GIVEN FOR PAIN CONTROL.
[2018-11-10 00:39] VITALS: BP 147/52
--- NOTE | 2018-11-10 00:54 | NUR ---
EYES CLOSED RESPIRATIONS WITH EASE AND UNLABORED.
[2018-11-10 04:54] VITALS: BP 138/49
--- NOTE | 2018-11-10 07:15 | NUR ---
REC'D IN BED AWAKE AND ALERT. RESP EVEN AND UNLABORED WITH NO DISTRESS NOTED. CAN EXPRESS NEEDS AND WANTS. NO C/O NOTED OR VOICED. ASSESSMENT COMPLETED. C/L IN REACH AT BEDSIDE.
[2018-11-10 08:22] VITALS: BP 154/55
[2018-11-10] MEDS ORDERED: HYDROCODON-ACE1 EAC7 PO (11:21)
[2018-11-10] MEDS ORDERED: OXYBUTYNIN CHLOR5 MG PO (11:22)
--- NOTE | 2018-11-10 12:00 | NUR ---
DC HOME WITH INSTRUCTION GIVEN ON HOW TO EMPTY CATRACHITA DRAIN AND MOSLEY. PT AND PT VOICE UNDERSTANDING. IV DC AT THIS TIME. C/L IN REACH BEDSIDE.
--- NOTE | 2018-11-10 13:09 | MORECARE ---
CASE MANAGEMENT DISCHARGE SUMMARY PATIENT: MARGIE ROA UNIT: [id number] ADM DATE: 11/08/18 AGE: 72 : 43 SEX: M ROOM/BED: D.2224 AUTHOR: ANYDOC PHYSICIAN: REFERRING PHYSICIAN: PRITESH BROOKS MD DATE OF SERVICE: 11/10/18 Discharge Plan Patient Name: MARGIE ROA Facility: [facility]:[place] : 1945 Planned Disposition: Home Anticipated Discharge Date: 11/10/18 Discharge Date: Expected LOS: 2 Initial Reviewer: [email or web address] Initial Review Date: 11/10/2018 Generated: 11/10/18 2:09 pm Comments DCP- Discharge Planning Updated by [email or web address]: Marquita Ribeiro on 11/10/18 12:[address] Patient Name: MARGIE ROA Admission Status: Elective Accout number: [id number] Admission Date: 11-08-2018 : 1945 Admission Diagnosis: Attending: ELIE BROOKS Current LOS: 2 Anticipated DC Date: 11-10-2018 Planned Disposition: Home Primary Insurance: MEDICARE A & B Discharge Planning Comments: Received discharge orders. I met with he and his to discuss needs. I discussed availability of home health and DME and they decline needs. States he will be going home with his and feels this is a safe discharge. states she has been instructed on walter catheter care and CATRACHITA drain care and feels competent that she can take care of them. Home today with . No needs identified. It Specialist: Marquita Ribeiro DCPIA - Discharge Planning Initial Assessment Updated by [email or web address]: Marquita Ribeiro on 11/10/18 1:03 pm * Is the patient Alert and Oriented? Yes * How many steps to enter\exit or inside your home? 2/0 * PCP Dr. Benson * [facility] [address] * Preadmission Environment Home with Family * ADLs Independent * Equipment CPAP * List name and contact numbers for known caregivers / representatives who currently or will assist patient after discharge: Estefany Roa - - [phone] * Verbal permission to speak to the caregivers and representatives has been obtained from the patient. Yes * Community resources currently utilized None * Please name any agencies selected above. [facility] * Additional services required to return to the preadmission environment? No * Can the patient safely return to the preadmission environment? Yes * Has this patient been hospitalized within the prior 30 days at any hospital? No Patient Name: MARGIE ROA Page 69131 at 1309 All edits/amendments must be made on the electronic document DICTATION DATE: 11/10/18 130 FARM TRACTOR OPERATOR: BLAYNE 11/10/18 1309 RPT#: [id number] DC DATE: STATUS: ADM IN [facility] [address] [place] [address] END OF REPORT
--- NOTE | 2018-11-10 13:27 | NUR ---
I have reviewed this patient and I concur with the Shift Assessment completed by the Licensed Practical Nurse today this shift.
--- NOTE | 2018-11-11 12:25 | OP ---
PATIENT NAME: MARGIE LUCERO MEDICAL RECORD: [id number] :41 LOCATION:[facility] ADMISSION DATE:11/08/18 SURGEON: PRITESH FLORES MD DATE OF OPERATION: 11/08/2018 PREOPERATIVE DIAGNOSIS: Bladder stones. POSTOPERATIVE DIAGNOSIS: Bladder stones. PROCEDURE: Cystotomy with removal of bladder stones. This is a cosurgeon case. The urologist was Dr. Brooks and general surgeon was Dr. Flores. I was called into the operating room by Dr. Brooks. He was getting ready to extract some bladder stones. He had performed an 8 cm lower midline incision and had entered the peritoneal cavity. He had not yet entered the bladder. There was some mesh in the left inguinal area. I was a little tenuous about removing the mesh and even doing some dissection around the mesh as I was pretty certain that it was in either near or stuck to the external iliac vessels and certainly we did not want to cause an iatrogenic injury to those structures. I was able to dissect it preperitoneally around this ball of mesh and dissect away surrounding connective tissue as well as the bladder without performing a cystotomy. We reperitonealized with a running 3-0 Vicryls. I then placed a stay suture, brought it down on the bladder and performed a cystotomy. He and I both extracted many, many stones. There were probably about 100 stones. We irrigated in the preperitoneal space. We removed all the stone debris that we could identify. I assisted him with the bladder repair. We irrigated again in the preperitoneal space. At no time was there any apparent injury to an intraperitoneal structure. He and I then placed a flat closed suction drain in each system that came out on the right. I assisted him with the low midline fascial closure and then the cutaneous closure with metallic clips. A sterile dressing was applied. TRANSINT:[id number] Voice Confirmation ID: [id number] DOCUMENT ID: [id number] PRITESH FLORES MD at 1225 CC: PRITESH BROOKS MD [id number] DICTATION DATE: 11/08/18 1743 ANIMAL CAREGIVER: 11/08/184 DIS IN 11/10/18 [place] [id number] [place] [address]
--- NOTE | 2018-11-11 16:35 | MORECARE ---
CASE MANAGEMENT DISCHARGE SUMMARY PATIENT: MARGIE ROA UNIT: [id number] ADM DATE: 11/08/18 AGE: 72 : 43 SEX: M ROOM/BED: D.2224 AUTHOR: ANYDOC PHYSICIAN: REFERRING PHYSICIAN: PRITESH BROOKS MD DATE OF SERVICE: 11/11/18 Discharge Plan Patient Name: MARGIE ROA Facility: [facility]:[place] : 1945 Planned Disposition: Home Anticipated Discharge Date: 11/10/18 Discharge Date: 11/10/2018 Expected LOS: 2 Initial Reviewer: [email or web address] Initial Review Date: 11/10/2018 Generated: 11/11/18 5:35 pm Comments DCP- Discharge Planning Updated by [email or web address]: Marquita Ribeiro on 11/10/18 12:[address] Patient Name: MARGIE ROA Admission Status: Elective Accout number: [id number] Admission Date: 11-08-2018 : 1945 Admission Diagnosis: Attending: ELIE BROOKS Current LOS: 2 Anticipated DC Date: 11-10-2018 Planned Disposition: Home Primary Insurance: MEDICARE A & B Discharge Planning Comments: Received discharge orders. I met with he and his to discuss needs. I discussed availability of home health and DME and they decline needs. States he will be going home with his and feels this is a safe discharge. states she has been instructed on walter catheter care and CATRACHITA drain care and feels competent that she can take care of them. Home today with . No needs identified. Heel Builder: Marquita Ribeiro DCPIA - Discharge Planning Initial Assessment Updated by [email or web address]: Marquita Ribeiro on 11/10/18 1:03 pm * Is the patient Alert and Oriented? Yes * How many steps to enter\exit or inside your home? 2/0 * PCP Dr. Benson * [facility] [address] * Preadmission Environment Home with Family * ADLs Independent * Equipment CPAP * List name and contact numbers for known caregivers / representatives who currently or will assist patient after discharge: Estefany Roa - - [phone] * Verbal permission to speak to the caregivers and representatives has been obtained from the patient. Yes * Community resources currently utilized None * Please name any agencies selected above. [facility] * Additional services required to return to the preadmission environment? No * Can the patient safely return to the preadmission environment? Yes * Has this patient been hospitalized within the prior 30 days at any hospital? No Last DP export: 11/10/18 12:09 p Patient Name: MARGIE ROA Page 72065 at 1635 All edits/amendments must be made on the electronic document DICTATION DATE: 11/11/18 1635 IT HELP DESK TECHNICIAN: BLAYNE 11/11/18 1635 RPT#: [id number] DC DATE:11/10/18 STATUS: DIS IN [facility] [address] [place] [address] END OF REPORT
--- NOTE | 2018-11-11 16:51 | MORECARE ---
CASE MANAGEMENT DISCHARGE SUMMARY PATIENT: MARGIE ROA UNIT: [id number] ADM DATE: 11/08/18 AGE: 72 : 43 SEX: M ROOM/BED: D.2224 AUTHOR: ANYDOC PHYSICIAN: REFERRING PHYSICIAN: PRITESH BROOKS MD DATE OF SERVICE: 11/11/18 Discharge Plan Patient Name: MARGIE ROA Facility: [facility]:[place] : 1945 Planned Disposition: Home Anticipated Discharge Date: 11/10/18 Discharge Date: 11/10/2018 Expected LOS: 2 Initial Reviewer: [email or web address] Initial Review Date: 11/10/2018 Generated: 11/11/18 5:50 pm Comments DCP- Discharge Planning Updated by [email or web address]: Marquita Ribeiro on 11/10/18 12:[address] Patient Name: MARGIE ROA Admission Status: Elective Accout number: [id number] Admission Date: 11-08-2018 : 1945 Admission Diagnosis: Attending: ELIE BROOKS Current LOS: 2 Anticipated DC Date: 11-10-2018 Planned Disposition: Home Primary Insurance: MEDICARE A & B Discharge Planning Comments: Received discharge orders. I met with he and his to discuss needs. I discussed availability of home health and DME and they decline needs. States he will be going home with his and feels this is a safe discharge. states she has been instructed on walter catheter care and CATRACHITA drain care and feels competent that she can take care of them. Home today with . No needs identified. Fitness Center Attendant: Marquita Ribeiro DCPIA - Discharge Planning Initial Assessment Updated by [email or web address]: Marquita Ribeiro on 11/10/18 1:03 pm * Is the patient Alert and Oriented? Yes * How many steps to enter\exit or inside your home? 2/0 * PCP Dr. Benson * [facility] [address] * Preadmission Environment Home with Family * ADLs Independent * Equipment CPAP * List name and contact numbers for known caregivers / representatives who currently or will assist patient after discharge: Estefany Roa - - [phone] * Verbal permission to speak to the caregivers and representatives has been obtained from the patient. Yes * Community resources currently utilized None * Please name any agencies selected above. [facility] * Additional services required to return to the preadmission environment? No * Can the patient safely return to the preadmission environment? Yes * Has this patient been hospitalized within the prior 30 days at any hospital? No Last DP export: 11/10/18 12:09 p Patient Name: MARGIE ROA Page 45425 at 1651 All edits/amendments must be made on the electronic document DICTATION DATE: 11/11/181649 BUSINESS APPLICATIONS ANALYST: BLAYNE 11/11/181649 RPT#: [id number] DC DATE:11/10/18 STATUS: DIS IN [facility] [address] [place] [address] END OF REPORT
== END 2018-11-10 12:00 | disposition home or self-care (01) | DRG 663 ==
LOC: D.SDCHOLD 11-08 08:45 → D.MS 11-08 10:53 → D.SDCHOLD 11-08 10:53 → D.MS 11-08 17:35
PROVIDERS: Anesthesiology; ADMIT Urology; ATTEND Urology
PROC: 0T7D8DZ Dilation of Urethra with Intraluminal Device, Via Natural or Artificial Opening Endoscopic (ICD-10-PCS; principal; 2018-11-08 12:15)
PROC: 0TCB0ZZ Extirpation of Matter from Bladder, Open Approach (ICD-10-PCS; 2018-11-08 12:15)
DX: N21.0 Calculus in bladder (principal); N13.8 Other obstructive and reflux uropathy; C61 Malignant neoplasm of prostate; N40.1 Benign prostatic hyperplasia with lower urinary tract symptoms

== ENCOUNTER → 2020-01-10 08:29 | Outpatient (CLI) | payer MEDICARE ==
[2018-11-09 13:38] VITALS: BMI 34.6
[~2020-01-10 08:29] MED LIST changes: +HYDROCODON-ACE1 EAC7 PO; +MELATONIN 3 MG1 TAB PO; +OXYBUTYNIN CHLOR5 MG PO
== END | disposition home or self-care (01) ==
LOC: D.HCCARDIO 08:29
PROVIDERS: ATTEND Internal Medicine Cardiovascular Disease
DX: I25.10 Atherosclerotic heart disease of native coronary artery without angina pectoris (principal)

== ENCOUNTER 2020-01-31 07:02 | Day surgery (SDC) | payer MEDICARE ==
[~2020-01-31] VITALS: Ht 170.2 cm; Wt 97.1 kg
--- NOTE | ~2020-01-31 | HEMODYNAMI ---
PATIENT:MARGIE LUCERO MEDICAL RECORD: [id number] : 41 LOCATION:D.CAT ADMISSION DATE: 01/31/20 Generatedon:01/31/20209:23 Patient name: MARGIE LUCERO Patient #: [id number] SSN: [id number] : 1945 Date of study: 01/31/2020 Page: Of Hemodynamic Procedure Report Patient Data Patient Demographics Procedure consent was obtained First Name: MARGIE Gender: Male Last Name: NIC : 1945 Middle Initial: ORIN Age: 74 year(s) Patient #: [id number] Race: SSN: [id number] Additional ID: [id number] Contact details Address: [address] [place] [address] State: [place] City: [facility] Zip code: [address] Past Medical History Performed procedures and imaging results Date Procedure Procedure Results Comments 01/10/2020 Stress testing Positive->Intermediate with SPECT MPI risk Allergies Allergen Reaction Date Comments Reported Other allergy 01/31/2020 CODEINE Admission Admission Data Admission Date: 01/31/2020 Admission Time: 7:02 Arrival Date: 02/07/2020 Arrival Time: 0:00 Admit Source: Other Insurance Payor: Medicare [facility] #: [id number] Height (in.): 67 BSA: 1.98 (m2) Height (cm.): 170.18 BMI: 29.91 (kg/m2) Weight (lbs.): 191 Weight (kg.): 86.64 Lab Results Lab Result Date: 01/31/2020 Lab Result Time: 0:00 Biochemistry Name Units Result Min Max BUN mg/dl 15 --(--*-)-- 7 18 Creatinine mg/dl 1.2 --(---*)-- 0.6 1.3 eGFR ml/min 63 *-(----)-- 90 120 NONAFRICAN CBC Name Units Result Min Max Hematocrit % 38.6 *-(----)-- 42 54 Hemoglobin g/dl 13.1 -*(----)-- 13.5 17.5 Procedure Procedure Types Cath Procedure Diagnostic Procedure LHC LHC w/Coronaries w/Grafts Sedation Charges Moderate Sedation up to 15 minutes PCI Procedure Coronary Stent Coronary Stent Initial Hemochron ACT Test Procedure Description Procedure Date Procedure Date: 01/31/2020 Procedure Start Time: 9:00 Procedure End Time: 9:20 Procedure Staff Name Function Marcel Umanzor MD Performing Physician Rafael Henry RN Nurse Tiara Lopez RT Scrub Rukshana Mejia RT Monitor Procedure Data Cath Procedure Fluoroscopy Diagnostic fluoroscopy Total fluoroscopy Time: 3.5 time: 3.5 min min Diagnostic fluoroscopy Total fluoroscopy dose: 848 dose: 848 mGy mGy Contrast Material Contrast Material Type Amount (ml) Isovue 300 137 Entry Location Entry Primary Successful Side Size Upsize Upsize Entry Closure Succes sful Closure Location (Fr) 1 (Fr) 2 (Fr) Remarks Device Remarks Femoral Right 5 Fr 6 Fr Exoseal artery Short Estimated blood loss: 5 ml Diagnostic catheters Device Type Used For End Catheter Placement MULTIPACK JL 4.0 5Fr Left Coronary catheter Angiography MULTIPACK 3DRC 5Fr Right Coronary catheter Angiography MULTIPACK Pigtail 5 Fr LV Angiography catheter Procedure Complications No complications Procedure Medications Medication Administration Route Dosage Oxygen etCO2 Nasal cannula 2 l/min Lidocaine 2% added to field 20 Heparin Flush Bag added to field 2 bags (1000units/500ml NS) 0.9% NaCl I.V. 100 ml/hr Versed I.V. 1 mg Fentanyl I.V. 50 mcg Heparin Bolus I.V. 5000 units Versed I.V. 1 mg Fentanyl I.V. 50 mcg Integrilin (Bolus I.V. 9 ml 2mg/ml) Plavix P.O. 600 mg Hemodynamics Rest BSA: 1.98 (m2) HGB: 13.1 (g/dl) O2 Consumption: Estimated: 240.74 (ml/min) O2 Co nsumption indexed: Estimated:121.59 (ml/min/m) Heart Rate: 88 (bpm) Pressure Samples Time Site Value (mmHg) Purpose Heart Use Rate(bpm) 9:08 LV 128/-3,1 Snapshot 67 9:08 AO 119/45(77) Pullback 81 9:08 LV 110/-2,0 Pullback 81 Gradients Valve Time Site 1 Site 2 Mean SEP/DFP Peak To Heart Use (mmHg) (sec/min) Peak Rate (mmHg) (bpm) Aortic 9:08 LV AO 0 81 110/-2,0 119/45(77) Calculations Valve P-P Mean Valve Index Valve Source Name Gradient Area Flow (cm2) Aortic 0 0 Snapshots Pre Cath Intra NCS Post Cath Vital Signs Time Heart Resp SPO2 etCO2 NIBP (mmHg) Rhythm Pain Sedation Rate (ipm) (%) (mmHg) Status Level (bpm) 8:45:56 88 16 92 0 138/67(99) NSR 0 (11) 10(A) , No pain 8:50:27 82 15 98 34.5 128/62(93) NSR 0 (11) 10(A) , No pain 8:54:51 83 12 97 7.5 121/58(93) NSR 0 (11) 10(A) , No pain 8:59:15 82 15 97 0 118/55(83) NSR 0 (11) 9(A) , No pain 9:03:35 83 14 98 41.2 135/66(103) NSR 0 (11) 9(A) , No pain 9:08:04 79 18 98 32.3 129/57(109) NSR 0 (11) 9(A) , No pain 9:12:26 80 14 98 36.7 118/57(92) NSR 0 (11) 9(A) , No pain 9:16:46 84 16 99 36 126/67(93) NSR 0 (11) 10(A) , No pain Medications Time Medication Route Dose Verified Delivered Reason Notes Effectiveness by by 8:48:06 Heparin Flush added 2 Marcel Rod used for Bag to bags Noé Noé procedure (1000units/500ml field MD REYES NS) 8:48:18 0.9% NaCl I.V. 100 Marcel Hall Per physician ml/hr [facility] Henry RN, MD 8:48:50 Oxygen etCO2 2 Marcel Maldonadoie used for Nasal l/min [facility] Edenil[facility] Henry RN procedure cannula 8:48:58 Lidocaine 2% added 20ml Marcel Rod for local to vial [facility] anesthetic field MD REYES 8:52:32 Versed I.V. 1 mg Marcel Hall for sedation [facility] Edenilson Henry RN, MD 8:52:38 Fentanyl I.V. 50 Marcel Buffie for sedation mcg [facility] Edenilson Henry RN, MD 8:58:36 Versed I.V. 1 mg Marcel Maldonadoie for sedation [facility] Edenilson Henry RN, MD 8:58:41 Fentanyl I.V. 50 Marcel Maldonadoie for sedation mcg [facility] Edenilson Henry RN, MD 9:10:27 Heparin Bolus I.V. 5000 Marcel Hall for verifi ed units [facility] Edenilson Henry RN anticoagulation with dr MD burnham 9:13:05 Integrilin I.V. 9 ml Marcel Hall for wasted 1 (Bolus 2mg/ml) St Edenilson Henry RN antiplatelet ml of MD therapy vial 9:19:02 Plavix P.O. [address] for mg [facility] Edenilson Henry RN antiplatelet MD therapy Procedure Log Time Note 8:12:13 Procedure type changed to Cath procedure, Diagnostic procedure, LHC, LHC w/Coronaries w/Grafts, Sedation Charges, Moderate Sedation up to 15 minutes, PCI procedure, Coronary Stent, Coronary Stent Initial, Hemochron ACT Test 8:14:21 Informed consent obtained and on chart 8:17:08 Admit Source: Other 8:17:12 Insurance Payor : Medicare 8:17:14 Arrival Date: 02/07/2020 12:00:00 AM 8:17:38 Patient Height : 67 inches 8:17:42 Patient Weight : 191 lbs 8:17:47 Diagnostic Cath Status : Elective 8:17:58 ACC Patient presents with Stable Angina CCS Anginal Class 2--Slight limitation of ordinary activity. 8:18:01 Procedure Status Elective Heart Cath (OP). 8:18:03 Time tracking: Regular hours (M-F 7:00 - 5:00) 8:18:07 Plan of Care:Hemodynamics will remain stable., Cardiac rhythm will remain stable., Comfort level will be maintained., Respiratory function will remain adequate., Patient/ family verbilizes understanding of procedure., Procedure tolerated without complication., Recovers from procedure without complications.. 8:18:14 H&P Date Dictated: 01/24/2020 Within 30 days and on chart.. 8:24:48 Stress Test: yes; abnormal ANTERIOR, APICAL, INFERIOR DEFECT 8:25:26 Lab Result : BUN 15 mg/dl 8:25:26 Lab Result : eGFR NONAFRICAN 63 ml/min 8:25:26 Lab Result : Creatinine 1.2 mg/dl 8:25:26 Lab Result : Hemoglobin 13.1 g/dl 8:25:26 Lab Result : Hematocrit 38.6 % 8:25:40 Lab results completed and on chart. 8:30:53 Tiara Lopez RT(R) sent for patient. Start room use. 8:35:29 Patient received from Pre/Post Procedure Room to CCL 1 Alert and oriented. Tansferred to table in Supine position. 8:35:31 Warm blankets applied, and irene hugger turned on for patient comfort. 8:35:31 Correct patient and procedure confirmed by team. 8:35:32 ECG and BP/O2 sat monitors applied to patient. 8:35:32 Pre-procedure instructions explained to patient. 8:35:33 Pre-op teaching completed and patient verbalized understanding. 8:35:34 Family in waiting room. 8:35:36 Patient NPO since Midnight. 8:35:41 Patient allergic to No known allergies 8:35:45 Is the patient allergic to Iodine/contrast media? No. 8:38:10 Patient allergic to Other allergyCODEINE 8:38:14 Patient diabetic? Yes. 8:38:16 If diabetic: On Metformin? Yes 8:38:21 If on Metformin: Last Dose? 01/29/2020 8:38:25 Was the patient premedicated? No 8:38:27 Is patient on blood thinner?No 8:38:29 ----Pre-sedation anethsthesia assessment.---- 8:38:32 Previous problem with sedation/anesthesia? No ? 8:40:50 Snore? Yes 8:40:52 Sleep apnea? No 8:40:53 Deviated septum? No 8:40:54 Opens mouth fully? Yes 8:40:55 Sticks out tongue? No 8:40:59 Airway obstruction? Yes COPD 8:41:04 Dentures? Yes OUT 8:41:08 Pre procedure: right dorsailis pedis pulse 2+ Normal; easily identifiable; not easily obliterated 8:41:10 Pre procedure: left dorsailis pedis pulse 2+ Normal; easily identifiable; not easily obliterated 8:41:12 Patient pain scale 0/10 ?. 8:41:21 IV patent on arrival in left forearm with 0.9% NaCl at O. 8:41:26 Right groin area was prepped with chlora-prep and draped in sterile fashion 8:41:27 Alarms reviewed by Alisha N. 8:41:28 Sharps counted by scrub and verified by R.N. 8:41:30 Physician arrived 8:41:30 --------ALL STOP TIME OUT------ 8:41:30 Final Timeout: patient, procedure, and site verified with staff and physician. All members of the team are in agreement. 8:41:33 Right groin site verified by team. 8:41:37 Fire Safety Assessment: A--An alcohol-based skin anteseptic being used preoperatively., C--Open oxygen or nitrous oxide is being used., D--An ESU, laser, or fiber-optic light is being used. 8:41:41 Physical assessment completed. ASA score P 2 - A patient with mild systemic disease as per Marcel Umanzor MD. 8:42:21 2) 60-89 Mildly reduced kidney function, and other findings (as for stage 1) point to kidney disease. 8:43:21 Maximum allowable contrast dose (3.7 X eGFR X 0.75)174 ml. 8:43:26 Sedation plan: IV Moderate Sedation Medication:Versed, Fentanyl 8:43:30 Use device set Femoral Dx 8:43:32 ACIST Syringe (86780) opened to sterile field. 8:43:32 Bag Decanter (2002S) opened to sterile field. 8:43:32 Medline Cath Pack ([id number]) opened to sterile field. 8:43:34 ACIST Hand Control (84151) opened to sterile field. 8:43:34 ACIST Manifold (30402) opened to sterile field. 8:43:35 DIAGNOSTIC Multipack 5Fr catheter set (PV4171) opened to sterile field. 8:43:36 Tegaderm 4 x 4 (1626W) opened to sterile field. 8:43:37 SHEATH 5FR [place] (TOD035) opened to sterile field. 8:43:37 EMERALD Guide Wire (182-253) opened to sterile field. 8:44:36 Vital chart was started 8:44:38 Baseline sample Acquired. 8:44:45 Rhythm: sinus tachycardia 8:44:48 Full Disclosure recording started 8:48:06 Heparin Flush Bag (1000units/500ml NS) 2 bags added to field was administered by Marcel Umanzor MD; used for procedure; Verbal order read back and verified. 8:48:18 0.9% NaCl 100 ml/hr I.V. was administered by Rafael Henry RN; Per physician; Verbal order read back and verified. 8:48:50 Oxygen 2 l/min etCO2 Nasal cannula was administered by Rafael Henry RN; used for procedure; Verbal order read back and verified. 8:48:58 Lidocaine 2% 20ml vial added to field was administered by Marcel Umanzor MD; for local anesthetic; Verbal order read back and verified. 8:51:32 Zero performed for pressure channel P1 8:52:32 Versed 1 mg I.V. was administered by Rafael Henry RN; for sedation; Verbal order read back and verified. 8:52:38 Fentanyl 50 mcg I.V. was administered by Rafael Henry RN; for sedation; Verbal order read back and verified. 8:58:36 Versed 1 mg I.V. was administered by Rafael Henry RN; for sedation; Verbal order read back and verified. 8:58:41 Fentanyl 50 mcg I.V. was administered by Rafael Henry RN; for sedation; Verbal order read back and verified. 9:00:18 Procedure started. 9:00:38 Local anesthetic to right femoral artery with Lidocaine 2% by Marcel Umanzor MD.INITIAL ACCESS ONLY 9:01:10 A 5 Fr sheath was inserted into the Right Femoral artery 9:02:23 A MULTIPACK JL 4.0 5Fr catheter was advanced over the wire and used for Left Coronary Angiography. 9:03:22 LCA angiography performed. 9:03:25 Injector settings: Ml/sec: 3, Volume: 6, 9:04:07 Catheter removed. 9:04:12 A MULTIPACK 3DRC 5Fr catheter was advanced over the wire and used for Right Coronary Angiography. 9:06:32 OTT to LAD angiography performed. 9:07:23 Catheter removed. 9:07:28 A MULTIPACK Pigtail 5 Fr catheter was advanced over the wire and used for LV Angiography. 9:08:11 LV hemodynamics recorded. 9:08:13 LV gram done using CORRIGAN 9:08:16 Injector settings: Ml/sec: 5, Volume: 15, 9:08:25 EF : 50 % 9:08:27 Aortic Root visualized 9:08:37 Catheter removed. 9:09:03 GUIDE 6FR XBLAD 3.5 catheter ([id number]) opened to sterile field. 9:09:04 BMW 300cm [place] 2 J wire ([id number]) opened to sterile field. 9:09:05 INFLATOR Merit BasixCompak (OT6639) opened to sterile field. 9:09:05 SHEATH 6FR [place] (KNU998) opened to sterile field. 9:09:35 Proceeding to intervention. 9:10:04 Sheath upsized to a 6 Fr Short. 9:10:14 ACC Pre-intervention MAIRA Flow is 3. 9:10:22 Pre PCI Site: Point [place] Ira mCirc has 90% stenosis. 9:10:27 Heparin Bolus 5000 units I.V. was administered by Rafael Henry RN; for anticoagulation; verified with dr burnham Verbal order read back and verified. 9:10:29 6 Fr XBLAD 3.5 guide catheter was inserted over the wire 9:10:33 BMW wire advanced. 9:13:05 Integrilin (Bolus 2mg/ml) 9 ml I.V. was administered by Rafael Henry RN; for antiplatelet therapy; wasted 1 ml of vial Verbal order read back and verified. 9:14:07 Wire advanced across lesion. 9:14:57 Place stent Inflation Number: 1 A NICCI RX 3.0 x 12 stent ([id number]) was prepped and advanced across the Mid CX 80. The stent was deployed at 14 MONISHA for 0:30 (min:sec) 0. 9:15:32 Stent catheter was removed intact over wire. 9:15:33 Wire removed. 9:15:33 Guide catheter removed. 9:15:41 EXOSEAL 6Fr (EX600) opened to sterile field. 9:16:11 Sheath removed intact; hemostasis achieved with Exoseal to the Right Femoral artery. 9:16:13 Procedure ended.(Physican Out) 9:16:48 Fluoroscopy time 03.50 minutes. 9:16:53 Fluoroscopy dose: 848 mGy 9:16:53 Flurop Dose total: 848 9:17:00 Dose Area Product 28068 mGy/cm. 9:17:49 Contrast amount:Isovue 300 137ml. 9:18:15 Maximum allowable dose exceeded? No. 9:18:17 Sharps counted by scrub and verified by R.N. 9:18:37 Insertion/operative site no bleeding no hematoma. 9:18:47 ACT drawn and resulted at 206 seconds. (normal therapeutic range 180-240 seconds). 9:18:51 Post-op/insertion site Right Femoral artery dressed using a 4 x 4 and Tegaderm. 9:18:56 Post procedure rhythm: unchanged. 9:18:59 Estimated blood loss: 5 ml 9:19:00 Post procedure instruction explained to patient.Patient verbalizes understanding. 9:19:01 Patient needs reinforcement of post procedure teaching. 9:19:02 Plavix 600 mg P.O. was administered by Rafael Henry RN; for antiplatelet therapy; Verbal order read back and verified. 9:19:02 Procedure and supply charges have been captured, reviewed, submitted and are correct. 9:19:21 Procedure Complication : No complications 9:19:35 Vital chart was stopped 9:19:37 [facility] Findings: MVD- PCI performed (see procedure note) 9:19:41 Operative report dictated upon procedure completion. 9:19:42 See physician's report for complete and final results. 9:19:44 Report given to Pre/Post Procedure Room. 9:20:15 Patient transfered to Pre/Post Procedure Room with Stretcher. 9:20:20 Procedure ended. 9:20:20 Full Disclosure recording stopped 9:20:28 ACC-PCI Only Patient was given prescriptions, or instructed by Marcel Umanzor MD to start/continue the following medications upon discharge: Plavix 9:20:29 End room use (Document Last) Intervention Summary Intervention Notes Time ActionType Lesion and Equipment Used Action# Pressure Duration Attributes 9:14:57 Place stent Mid CX NICCI RX 3.0 x 1 14 00:30 12 stent ([id number]) Device Usage Item Name Manufacture Quantity Catalog Hospital Part [facility] Lot# / Number Charge Number Stock Stock Serial# Code ACIST Syringe Acist 1 27239 032584 689330 811983 20 (97502) [employer] Bag Decanter Microtek 1 059579 87822 318742 5 () Medical Inc. Medline Cath Medline 1 [id number] 146170 64363 206720 5 Pack ([id number]) ACIST Hand Acist 1 40803 698214 276603 941807 5 Control Medical (64322) Systems Inc ACIST Manifold Acist 1 24992 911455 582001 684793 5 (23943) [employer] Inc DIAGNOSTIC Cardinal 1 [id number] 279471 74912 855099 30 Multipack 5Fr Health catheter set (OR9841) Tegaderm 4 x 4 3M 1 1626W 714648 898740 481442 5 (1626W) SHEATH 5FR Terumo 1 RAD576 256689 081902 001788 5 [place] (NYW346) EMERALD Guide Cardinal 1 502-455 576904 069953 574265 5 Wire (502-455) Health MULTIPACK JL Cardinal 1 387836 5 4.0 5Fr Health catheter MULTIPACK 3DRC Cardinal 1 045567 5 5Fr catheter Health MULTIPACK Cardinal 1 058341 5 Pigtail 5 Fr Health catheter GUIDE 6FR Cardinal 1 [id number] 478670 675806 555584 10 XBLAD 3.5 Health catheter ([id number]) BMW 300cm [place] 1 [id number] 828248 739853 919554 5 [place] 2 J Vascular wire (8490915R) INFLATOR Merit Merit 1 VA0971 364622 442094 364065 15 [employer] (BX9244) SHEATH 6FR Terumo 1 MJM186 598550 200499 827001 40 [place] (LPT980) NICCI RX 3.0 x Medtronic 1 [id number] 816609 4241207 791356 5 [id number] 12 stent ([id number]) EXOSEAL 6Fr Cardinal 1 EX600 816619 469194 138036 10 (EX600) Health Signature Audit [place] Stage Time Signature Unsigned Intra-Procedure 01/31/2020 Tiara Lopez 9:22:24 AM RT(R) Intra-Procedure 01/31/2020 Rafael Henry RN 9:22:51 AM Intra-Procedure 01/31/2020 Marcel Ren 9:23:09 AM Edenilson [facility] [address] [place] [address]
[2020-01-31] MEDS ORDERED: BAYER CHEWABLE81 MG PO (07:21)
[2020-01-31] MEDS ORDERED: FISH OIL 1,0001 CA1 PO (07:25)
[2020-01-31 07:44] LABS: BASOPHILS 0.2 % (0-2); EOSINOPHILS 1.1 % (0-7); HEMATOCRIT 38.6 % (42.0-54.0); HEMOGLOBIN 13.1 g/dL (13.5-17.5); IMMATURE GRANULOCYTES 0.8 % (0-5); LYMPHOCYTES 24.6 % (15-50); MCH 30.3 pg (26.0-34.0); MCHC 33.9 g/dL (31.0-37.0); MCV 89.4 fL (80.0-100.0); MONOCYTES 8.1 % (2-11); NEUTROPHILS 65.2 % (40-80); PLATELET COUNT 121 10x3/uL (130-400); RBC 4.32 10x6/uL (4.20-6.10); RDW 14.9 % (11.5-14.5); WBC 8.3 10x3/uL (4.8-10.8)
[2020-01-31 07:47] VITALS: BP 151/73; Ht 170.2 cm; Wt 97.1 kg
[2020-01-31 08:03] LABS: ANION GAP 12.5 mmol/L (8-16); CALCIUM 9.3 mg/dL (8.5-10.1); CARBON DIOXIDE 25.5 mmol/L (21.0-32.0); CHOL - HDL RATIO 4.2 ratio (2.3-4.9); CREATININE - SERUM 1.2 mg/dL (0.6-1.3); LDL-HDL RATIO 1.8 ratio (1.5-3.5)
--- NOTE | 2020-01-31 09:30 | NUR ---
PT REC'D TO ROOM 7 VIA STRETCHER FROM INTERACTIVE MEDIA DESIGNER. MONITORS ESTAB. AT BS. SEE SHOE SHANKER. ALARMS ON AND C/L IN REACH.
[2020-01-31] MEDS ORDERED: PLAVIX75 MG PO (09:41)
--- NOTE | 2020-01-31 09:45 | NUR ---
R GROIN SITE SOFT, NO S/S BLEEDING OR HEMATOMA. R LEG/FOOT WARM WITH PALP PULSES AND CAP REFILL WNL. PT GIVEN SIPS OF SPRITE FOR "EPIGASTIC BURNING" PT REPORTS RELIEF. WILL CONT CLOSE MONITORING. ALARMS ON AND C/L IN REACH.
--- NOTE | 2020-01-31 10:15 | NUR ---
R GROIN SITE SOFT, NO S/S BLEEDING OR HEMATOMA. PULSES PALP. VSS. NEW PLAVIX PRESCRIPTION CALLED IN TO [facility] IN [place] PER PT REQUEST. AT BS. PT DENIES PAIN OR NEEDS.
--- NOTE | 2020-01-31 10:45 | NUR ---
PT RESTING QUIETLY, VSS. R GROIN SITE SOFT, NO S/S BLEEDING OR HEMATOMA. PULSES PALP. FEET WARM.
--- NOTE | 2020-01-31 11:15 | NUR ---
R GROIN SITE SOFT, NO S/S BLEEDING OR HEMATOMA. PULSES PALP, FEET WARM WITH CAP REFILL WNL. VSS. PT DENIES PAIN OR NEEDS. ALARMS ON AND C/L IN REACH.
--- NOTE | 2020-01-31 11:45 | NUR ---
R GROIN SITE SOFT, NO S/S BLEEDING OR SWELLING. PULSES PALP.
--- NOTE | 2020-01-31 12:28 | NUR ---
R LESLIE FERNANDES SOFT, C/D/I. HOB ELEVATED SLOWLY. SANDWICH TRAY PROVIDED. VSS. AT .
--- NOTE | 2020-01-31 12:52 | NUR ---
PT TOLERATED FOOD AND DRINK, NO N/V. R GROIN SITE SOFT, NO S/S BLEEDING OR HEMATOMA. VSS. C/L IN REACH.
--- NOTE | 2020-01-31 13:10 | NUR ---
ALL DISCHARGE INSTRUCTIONS REVIEWED WITH PT AND , INCLUDING RESTRICTIONS, MEDS AND F/U APPT. BOTH VERBALIZE UNDERSTANDING.
--- NOTE | 2020-01-31 13:19 | NUR ---
R GROIN SITE C/D/I, NO S/S BLEEDING OR SWELLING. PIV D/C'D INTACT, DSG APPLIED. PT ALLOWED UP TO GET DRESSED AND GO TO BR INDEPENDENTLY.
--- NOTE | 2020-02-02 12:15 | OP ---
PATIENT NAME: MARGIE LUCERO MEDICAL RECORD: [id number] :41 LOCATION:D.CAT ADMISSION DATE: SURGEON: AV RIVERA MD DATE OF OPERATION: 01/31/2020 PROCEDURE: Left heart catheterization, selective coronary angiography, right femoral artery approach. CATHETERS: A 5-Turkmen sheath, 5/4 left and right Gold, 5/4 pig. The procedure was well tolerated. The patient returned to beasley, sheath removed. ExoSeal device placed. FINDINGS: Left ventriculography in 30-degree CORRIGAN view shows inferior basilar hypokinesis. Overall, LV function is preserved at 50%. AORTIC ROOT INJECTION: Aortic root injection performed for bypass grafts that showed no open bypass grafts. Trace aortic insufficiency. CORONARY ANATOMY: LEFT MAIN: Left main is free of disease. LAD: Fills for a short period of time and is filling via competitive flow from the OTT. CIRCUMFLEX: Moderate size circumflex. This has 80% to 90% stenosis at the distal portion of the previously placed stent. RIGHT CORONARY: Right coronary is totally occluded, fills via left to right collaterals from the circ. PLAN: Intervention of circumflex momentarily. DESCRIPTION OF PROCEDURE: A 5-Turkmen sheath was exchanged for a 6-Turkmen sheath. XB LAD guiding catheter provided good guide catheter support followed by a 300 cm BMW wire was placed across the tightly occluded circ down this portion of vessel. Stent deployed was a 3.0 x 12 [place] drug-eluting stent up to 14 atmospheres shows excellent resolution of 80% stenosis to no significant residual. There was good pumping in the distal vasculature as well as an increased recruitment collaterals to the right. Sheath was closed with ExoSeal device. Plavix was loaded in the lab. TRANSINT:[id number] Voice Confirmation ID: [id number] DOCUMENT ID: [id number] AV RIVERA MD at 1215 CC: [id number] DICTATION DATE: 01/31/20922 MOP MACHINE OPERATOR: 01/31/20 1232 [facility] 01/31/20 [facility] [address] [place] [address]
== END 2020-01-31 13:22 | disposition home or self-care (01) ==
LOC: D.CATH 07:02
PROVIDERS: ATTEND Internal Medicine Interventional Cardiology
DX: I25.119 Atherosclerotic heart disease of native coronary artery with unspecified angina pectoris (principal); E11.9 Type 2 diabetes mellitus without complications; I10 Essential (primary) hypertension; I05.9 Rheumatic mitral valve disease, unspecified
CPT/HCPCS: 93459; 93567; C9600